=== PATIENT | female | born 1995 | race Hispanic/Latino ===

== ENCOUNTER 2025-08-10 09:08 | Emergency (ER) | payer OTHER ==
[~2025-08-10] VITALS: Ht 157.5 cm; Wt 90.7 kg
[2025-08-10 09:15] VITALS: TEMP 98.3
[2025-08-10 10:00] VITALS: PULSE 73; RESP 16
[2025-08-10] MEDS ORDERED: MUPIROCIN22 GM TOP (10:06)
[2025-08-10] MEDS ORDERED: AMOX TR-K CLV1 EAC2 PO (10:06)
[2025-08-10 11:00] VITALS: BP 142/56; PULSE 67; RESP 16; O2SAT 100
[2025-08-10] MEDS: TETANUS/DIPHTHERIA TOX ADULT 0.5 ML SYR IM ONE (11:11)
== END 2025-08-10 11:15 | disposition home or self-care (01) ==
LOC: ER 09:30
DX: S50.872A Other superficial bite of left forearm, initial encounter (principal); S50.871A Other superficial bite of right forearm, initial encounter; S60.572A Other superficial bite of hand of left hand, initial encounter; W55.01XA Bitten by cat, initial encounter; Y92.89 Other specified places as the place of occurrence of the external cause
CPT/HCPCS: 90714; 99283